=== PATIENT | female | born 1955 | race Hispanic/Latino ===

== ENCOUNTER → 2017-04-16 | Outpatient (CLI) | payer MEDICAID ==
[~2017-04-16] MED LIST: AEC81 PO; ATOR40TA69 PO; CARV6.2579 PO; FURO20TA4 PO; GLIP5TAB11 PO; LISI2.5T2 PO; METF500T6 PO; SACU1TAB PO; SPIR25TA4 PO
== END | disposition home or self-care (01) ==
LOC: SHCH 15:46
PROVIDERS: ATTEND Internal Medicine Cardiovascular Disease
DX: I42.9 Cardiomyopathy, unspecified (principal)
CPT/HCPCS: 93306

== ENCOUNTER 2017-06-27 07:00 | Observation (INO) | payer MEDICAID ==
[2017-06-25 10:56] LABS: BASOPHILS % (AUTO) 0.6 % (0.0-5.0); EOSINOPHILS % (AUTO) 3.6 % (0.0-8.0); HEMATOCRIT 38.4 % (36-48); LYMPHOCYTES % (AUTO) 39.4 % (21.0-51.0); MEAN CORPUSCULAR HEMOGLOBIN 30.2 pg (27.0-33.0); MEAN CORPUSCULAR HGB CONC 34.1 g/dL (32.0-36.0); MEAN CORPUSCULAR VOLUME 88.5 fL (79-99); NEUTROPHILS % (AUTO) 49.4 % (40.0-77.0); PLATELET COUNT (AUTO) 170 K/uL (130-400); RED BLOOD CELL COUNT(AUTO) 4.34 MIL/uL (4.00-5.50); RED CELL DISTRIBUTION WIDTH 13.6 % (11.0-15.5); WHITE BLOOD COUNT (AUTO) 7.9 K/uL (4.8-10.8)
[2017-06-25 11:02] LABS: CREATININE 0.8 mg/dL (0.5-1.5); POTASSIUM 4.3 mmol/L (3.5-5.1)
[2017-06-25 11:03] VITALS: BP 134/75
[2017-06-25 11:22] LABS: INR 1.01 (0.85-1.15); PARTIAL THROMBOPLASTIN TIME 27.7 SEC (26.3-35.5); PROTHROMBIN TIME 10.6 SEC (9.6-11.6)
[~2017-06-27] VITALS: Ht 152.4 cm; Wt 65.2 kg
[2017-06-27] VITALS (12 sets, daily range): BP systolic 78–148; BP diastolic 54–83
[~2017-06-27 07:00] MED LIST changes: -GLIP5TAB11 PO; -LISI2.5T2 PO; -SPIR25TA4 PO; +SPIR25TA6 PO
[2017-06-27] MEDS ORDERED: SODIUM CHLORIDE 0.9% 1000ML 1,000 ML IV ONE (07:59)
[2017-06-27] MEDS ORDERED: CEFAZOLIN SODIUM 1 GM VIAL ONE (09:02)
[2017-06-27] MEDS ORDERED: LIDOCAINE HCL 1% MDV 50ML VIAL ONE (09:02)
[2017-06-27] MEDS ORDERED: BUPIVACAINE/PF 0.25% 10ML VIAL IJ ONE (09:02)
[2017-06-27] MEDS ORDERED: MIDAZOLAM HCL 1 MG/ML 2ML VIAL ONE ×2 (09:05→09:36)
[2017-06-27] MEDS ORDERED: MEPERIDINE-PF 50 MG/ML SYG ONE (09:05)
[2017-06-27] MEDS ORDERED: MEPERIDINE-PF 25 MG/ML SYG ONE (09:36)
[2017-06-27] MEDS ORDERED: ACETAMINOPHEN-CODEINE 300/30MG TAB PO PRN ×2 (10:30)
[2017-06-27] MEDS ORDERED: ACETAMINOPHEN 325 MG TAB PO PRN (10:30)
[2017-06-27] MEDS: METFORMIN HCL 500 MG TABLET PO SCH (17:05)
[2017-06-27] MEDS: CARVEDILOL 6.25 MG TABLET PO SCH (20:09)
[2017-06-27] MEDS: FUROSEMIDE 20 MG TABLET PO SCH (20:09)
[2017-06-27] MEDS: ***HM***(Sacubitril/Valsartan (Entresto 24 mg-26 mg Tablet) 1 EACH PO SCH (21:00)
[2017-06-27] MEDS ORDERED: ATORVASTATIN CALCIUM 40 MG TABLET PO SCH (21:00)
[2017-06-27] MEDS ORDERED: DEXTROSE 50%-WATER 50 ML DISP.SYRIN IV PRN (21:45)
[2017-06-27] MEDS ORDERED: GLUCAGON 1MG KIT 1 MG ML IM PRN (21:45)
[2017-06-27] MEDS: INSULIN HUMULIN R 100 UNIT/ML 3ML SQ SCH (22:09)
[2017-06-28 03:30] VITALS: BP 118/72
[2017-06-28] MEDS: INSULIN HUMULIN R 100 UNIT/ML 3ML SQ SCH (06:15)
[2017-06-28 07:21] VITALS: BP 116/72
[2017-06-28] MEDS: METFORMIN HCL 500 MG TABLET PO SCH (08:06)
[2017-06-28] MEDS: ***HM***(Sacubitril/Valsartan (Entresto 24 mg-26 mg Tablet) 1 EACH PO SCH (09:00)
[2017-06-28] MEDS ORDERED: SPIRONOLACTONE 25 MG TAB PO SCH (09:00)
[2017-06-28] MEDS ORDERED: ASPIRIN 81 MG EC TAB PO SCH (09:00)
[2017-06-28] MEDS: CARVEDILOL 6.25 MG TABLET PO SCH (09:56)
[2017-06-28] MEDS: FUROSEMIDE 20 MG TABLET PO SCH (09:57)
[2017-06-28 11:37] VITALS: BP 102/61
== END 2017-06-28 12:43 | disposition home or self-care (01) ==
LOC: DAH 07:00 → DAHIP 07:01 → DAH 07:01 → 2AH 10:40
PROVIDERS: ADMIT Internal Medicine; ATTEND Internal Medicine
DX: I25.5 Ischemic cardiomyopathy (principal); I25.10 Atherosclerotic heart disease of native coronary artery without angina pectoris; E11.9 Type 2 diabetes mellitus without complications; E78.5 Hyperlipidemia, unspecified; I11.0 Hypertensive heart disease with heart failure; I50.9 Heart failure, unspecified; I25.2 Old myocardial infarction; Z82.3 Family history of stroke; Z82.49 Family history of ischemic heart disease and other diseases of the circulatory system; Z83.3 Family history of diabetes mellitus
CPT/HCPCS: 33249; 36415; 71045; 80048; 82948 ×6; 85025; 85610; 85730; A4606; C1721; C1895 ×2; G0378 ×30; J0690; J2175; J2250; J3490 ×2; J7030; 99152; 99153